=== PATIENT | female | born 1980 | race African-American/Black ===

== ENCOUNTER 2019-03-13 06:10 | Inpatient (IN) | payer OTHER ==
[2019-03-11 14:00] LABS: ABS Eosinophils 0.1 10^3/ul (0-0.6); ABS Lymphocytes 1.3 10^3/ul (1.0-4.8); ABS Monocytes 0.8 10^3/ul (0-0.8); ABS Neutrophils 9.6 10^3/ul (1.5-7.7); Eosinophil % 0.9 %; Hematocrit 36 % (35-47); Hemoglobin 12.2 g/dL (12.0-16.0); Lymphocyte % 10.8 %; Mean Corpuscular HGB Conc 34 g/dL (31-36); Mean Corpuscular Hemoglobin 33 pg (27-31); Mean Corpuscular Volume 97 fL (80-97); Mean Platelet Volume 7.4 fL (7.4-10.4); Nucleated Red Blood Cells % 0.1; Platelet Count 233 10^3/uL (150-450); Red Blood Count 3.68 10^6 /uL (3.70-4.87); Red Cell Distribution Width 14 % (10-15); White Blood Count 11.7 10^3/uL (3.5-10.8)
[~2019-03-13 06:10] MED LIST: Sodium Citrate/Citric Acid* 15 ML UDC PO SCH
--- OUTSIDE RECORDS SUMMARY | 2019-03-13 06:14 | XMS REPORT | Continuity of Care Document ---
:1980 External Reference #:[id number] Author Name Monik Garrett MD Address [address] [place] [address] Care Team Providers Name Role Phone Yara Evangelista MD Care Team Information Brick Picker [phone] Problems Description No Active Problems Social History Type Date Description Comments Sex Unknown Tobacco Use Start: Unknown Never Smoked Cigarettes ETOH Use Alcohol Use Prior To 1 drink/week, stopped with Recreational Drug Use Does Not Use Drugs Tobacco Use Start: Unknown Patient has never smoked Smoking Status Reviewed: 03/05/19 Patient has never smoked Exercise Type/Frequency Does not exercise Seat Belt/Car Seat Always uses seat belt Allergies, Adverse Reactions, Alerts Description No Known Drug Allergies Medications Active Medications SIG Qnty Indications Ordering Provider Date Ferrous Gluconate by mouth twice 60tabs Sammie Burciaga CNM 08/29/2018 a day 324(38Fe) mg Tablets Vitamins 1 by mouth Unknown every day Tablets Eql Fiber Supplement prn Unknown Powder Medications Administered in Office Medication SIG Qnty Indications Ordering Provider Date PT SCRN Tbco Id as Non User Monik Garrett MD 03/05/2019 Injection Immunizations CPT Code Status Date Vaccine Lot # [id number] Given 01/14/2015 Tetnus, Diptheria Toxoids And Acellular Pertussis, [id number] PT > 7Yrs Old Vital Signs Date Vital Result Comment 03/05/2019 2:36pm BP Systolic 110 mmHg BP Diastolic 54 mmHg Height 63.5 inches 5'3.50" Weight 167.00 lb BMI (Body Mass Index) 29.1 kg/m2 4 Parity 3 08/26/2018 2:00pm BP Systolic 114 mmHg BP Diastolic 66 mmHg Height 63.5 inches 5'3.50" Weight 142.00 lb BMI (Body Mass Index) 24.8 kg/m2 Last Menstrual Period [id number] 4 Parity 3 Results Test Date Facility Test Result H/L Range Note Laboratory test [facility] Genital For GRP SEE RESULT 1 [address] [place] [address] B Strep Only BELOW [phone] Glucose [facility] GTT 3HR (SEE NOTE) 2 Tolerance 3HR 9 [place] [address] Gestational Gestational [phone] Laboratory test [facility] Glucose 1 HR 146 mg/dL Normal 70-160 3 finding [address] [place] [address] Post Prandial [phone] CBC With No Diff [facility] White Blood 13.6 High 3.5-10.8 9 [place] [address] Count 10^3/uL [phone] Red Blood Count 3.64 10^6/uL Low 3.70-4.87 Hemoglobin 12.3 g/dL Normal 12.0-16.0 Hematocrit 36 % Normal 35-47 Mean Corpuscular Volume 99 fL High 80-97 Mean Corpuscular Hemoglobin 34 pg High 27-31 Mean Corpuscular HGB Conc 34 g/dL Normal 31-36 Red Cell Distribution Width 16 % High 10-15 Platelet Count 193 10^3/uL Normal 150-450 Mean Platelet Volume 7.8 fL Normal 7.4-10.4 Urine Drug 09/27/2018 [facility] Urine Amphetamine Negative ng/ mL 4 Comp [address] [place] [address] [phone] Urine Barbiturates Negative ng/mL 5 Urine Benzodiazepines Negative ng/mL 6 Urine Cocaine Negative ng/mL 7 Urine Phencyclidine Negative ng/mL Cutoff: 25 Urine Tetrahydrocannabinol Negative ng/mL Cutoff: 50 8 Creatinine, Urine 43.6 mg/dL Specific [place] 1.005 pH 7.6 Oxidants Negative 9 Adulterants Comment Normal Codeine, Ur Not Detected ng/mL Cutoff: 25 10 Lwgzwrx-5-jpdy-glucuronide, Ur Not Detected ng/mL 11 Morphine, Ur Not Detected ng/mL Cutoff: 25 12 Lyteafnl-1-uhqm-glucuronide, U Not Detected ng/mL 13 6-monoacetylmorphine, Ur Not Detected ng/mL Cutoff: 25 14 Hydrocodone, Ur Not Detected ng/mL Cutoff: 25 15 Norhydrocodone, Ur Not Detected ng/mL Cutoff: 25 16 Dihydrocodeine, Ur Not Detected ng/mL Cutoff: 25 17 Hydromorphone, Ur Not Detected ng/mL Cutoff: 25 18 Nefgmfvdqxufb2ajtamjhdfqojbpx Not Detected ng/mL 19 Oxycodone, Ur Not Detected ng/mL Cutoff: 25 20 Noroxycodone, Ur Not Detected ng/mL Cutoff: 25 21 Oxymorphone, Ur Not Detected ng/mL Cutoff: 25 22 Vjnwxpqvlcp-7-gitd-glucuronide Not Detected ng/mL 23 Noroxymorphone, Ur Not Detected ng/mL Cutoff: 25 24 Fentanyl, Ur Not Detected ng/mL Cutoff: 2 25 Norfentanyl, Ur Not Detected ng/mL Cutoff: 2 26 Meperidine, Ur Not Detected ng/mL Cutoff: 25 27 Normeperidine, Ur Not Detected ng/mL Cutoff: 25 28 Naloxone, Ur Not Detected ng/mL Cutoff: 25 29 Nfptjdvf-1-vzhr-glucuronide, U Not Detected ng/mL 30 Methadone, Ur Not Detected ng/mL Cutoff: 25 31 Eddp, Ur Not Detected ng/mL Cutoff: 25 32 Propoxyphene, Ur Not Detected ng/mL Cutoff: 25 33 Norpropoxyphene, Ur Not Detected ng/mL Cutoff: 25 34 Tramadol, Ur Not Detected ng/mL Cutoff: 25 35 O-desmethyltramadol, Ur Not Detected ng/mL Cutoff: 25 36 Tapentadol, Ur Not Detected ng/mL Cutoff: 25 37 N-desmethyltapentadol, Ur Not Detected ng/mL Cutoff: 50 38 Kejrgydwlm-ugro-qfervbtmpye, U Not Detected ng/mL 39 Buprenorphine, Ur Not Detected ng/mL Cutoff: 5 40 Norbuprenorphine, Ur Not Detected ng/mL Cutoff: 5 41 Norbuprenorphine glucuronide Not Detected ng/mL Cutoff: 20 42 Opioid Interpretation See Comment 43 GC/Chlamydia Dna 09/27/2018 [facility] Chlamydia [place] [address] trachomatis Rna [phone] Neisseria gonorrhoeae (GC) Rna Negative Negative 1 SEE RESULT BELOW Name: YADIEL SHANNON : [address]: Feliberto Maria DO Acct: [id number] Unit: [id number] AGE: 38 Location: [facility] Re02/18/19 SEX: F Status: REG REF SPEC: [id number] FIDENCIO: 02/18/19-[address]: Feliberto Maria DO REQ: [id number] RECD: 02/19/19-1236 STATUS: JASON BOUCHER DR: Yara Evangelista MD _ SOURCE: CER/VAG/RE SPDESC: ORDERED: Grp B Strp Scrn COMMENTS: [id number] Copy Result to: Yara EVANGELISTA ([phone]) QUERIES: Is patient penicillin allergic and/or sensitivities needed? Y Provider Requisition # C77#[id number]_ Procedure Result Reported Site Group B Strep Culture Screen Final 02/21/19- 1009 [facility] Group B Strep Screen Negative * [facility] - Main Lab . END OF REPORT DEPARTMENT OF PATHOLOGY, [address] [place] [address] Camacho Manzano M.D. Director [facility] # [id number] GLU Fast 86 Col: 12/30/18 0759 GLU 1HR 117 Col: 12/30/18 0859 GLU 2HR 118 Col: 12/30/18 0959 GLU 3HR 95 Col: 12/30/18 1059 GLU Interp Col: 12/30/18 0759 GTT normal ranges for obstetrics per the [employer] (ACOG).Based on 100 gm glucose load: Fasting <95 mg/dl 1hr <180 mg/dl 2hr <155 mg/dl 3hr <140 mg/dl 3 [id number] REFERENCE VALUE Cutoff: 500 5 REFERENCE VALUE Cutoff: 200 6 REFERENCE VALUE Cutoff: 100 7 REFERENCE VALUE Cutoff: 150 8 ADDITIONAL INFORMATION This report is intended for use in clinical monitoring or management of patients. It is not intended for use in employment-related testing. 9 REFERENCE VALUE Cutoff: 200 mg/L 10 Tylenol 3 11 Metabolite of codeine REFERENCE VALUE Cutoff: 100 12 Joanna Padgett, MS Contin; Also a minor metabolite (10%) of codeine and can be seen in low concentrations (<2,000 ng/mL) with poppy seed ingestion. 13 Metabolite of morphine REFERENCE VALUE Cutoff: 100 14 Metabolite of heroin 15 Lortab, [place], Vicodin; Also a very minor metabolite of codeine and impurity (<1%) of oxycodone. 16 Metabolite of hydrocodone 17 Metabolite of hydrocodone 18 Dilaudid, Exalgo; Also a metabolite of hydrocodone and a minor (<5%) metabolite of morphine. 19 Metabolite of hydromorphone REFERENCE VALUE Cutoff: 100 20 Endocet, Percocet, Oxycontin 21 Metabolite of oxycodone 22 Numorphan, Opana; Also a metabolite of oxycodone. 23 Metabolite of oxymorphone REFERENCE VALUE Cutoff: 100 24 Metabolite of oxymorphone 25 Actiq, Duragesic, Fentora 26 Metabolite of fentanyl 27 Demerol 28 Metabolite of meperidine 29 Narcan 30 Metabolite of naloxone REFERENCE VALUE Cutoff: 100 31 Dolophine 32 Metabolite of methadone 33 Darvon, Darvocet 34 Metabolite of propoxyphene 35 Tradol, Ultram, Ultracet 36 Metabolite of tramadol 37 Nucynta 38 Metabolite of tapentadol 39 Metabolite of tapentadol REFERENCE VALUE Cutoff: 100 40 Buprenex, Suboxone 41 Metabolite of buprenorphine 42 Metabolite of buprenorphine 43 No opioids were detected. The absence of expected drug(s) and/or drug metabolite(s) may indicate non-compliance, altered pharmacokinetics, inappropriate timing of specimen collection relative to drug administration, diluted/adulterated urine, or limitations of testing. ADDITIONAL INFORMATION This test was developed and its performance characteristics determined by [facility] in a manner consistent with CLIA requirements. This test has not been cleared or approved by the U.S. Food and Drug Administration. Test Performed by: [facility] [address] [place] [id number] Procedures Date Code Description Status 11/08/2018 56665 Echography Uterus Complete Completed Medical Devices Description No Information Available Encounters Type Date Location Provider Dx Diagnosis Office Visit 03/05/2019 [facility] Monik Garrett, O34.211 Matern care for low 2:30p MD transverse scar from prev del Assessments Date Code Description Provider 03/05/2019 O34.211 Maternal care for low transverse scar from Monik Garrett MD previous delivery 02/18/2019 O34.211 Maternal care for low transverse scar from Feliberto Maria JR, DO previous delivery 02/10/2019 O34.211 Maternal care for low transverse scar from Felibertoashley Maria JR, DO previous delivery 02/03/2019 Z34.83 Encounter for supervision of other normal Monik Garrett MD , third trimester 01/17/2019 Z34.83 Encounter for suprvsn of normal , Maik Grimes M.D. third trimester 01/01/2019 O34.211 Matern care for low transverse scar from Jo Rowland MD prev del 12/30/2018 Z36.9 Encounter for screening, Monik Garrett MD unspecified 12/30/2018 Z36.9 Encounter for screening, Laboratory unspecified 12/09/2018 Z36.9 Encounter for screening, Jo Rowland MD unspecified 12/09/2018 Z36.9 Encounter for screening, Laboratory unspecified 12/09/2018 O34.211 Matern care for low transverse scar from Jo Rowland MD prev del 11/08/2018 Z36.3 Encounter for screening for Rosalva Ocasio MD malformations 11/08/2018 O34.211 Matern care for low transverse scar from Rosalva Ocasio MD prev del 11/08/2018 Z36.3 Encounter for screening for Ultrasounds malformations 10/28/2018 O34.211 Matern care for low transverse scar from Rosalva Ocasio MD prev del 09/27/2018 O34.211 Matern care for low transverse scar from Jo Rowland MD prev del Plan of Treatment Future Appointment(s):03/20/2019 11:00 am - Lucia Castillo CNM at [facility] 7:45 am - Maik Grimes M.D. at [facility] O R1 10:00 am - Monik Garrett MD at [facility]03/13/2019 7:45 am - Monik Garrett MD at [facility] O R003/05/2019 - Monik Garrett MDO34.211 Maternal care for low transverse scar from previous deliveryComments:Pt desires permanent sterility and repeat section. Pt accepts risks to include but not limited to infection, bleeding, damage to internal organs, failure of tubal ligation 2% over 10 years, need for blood products, need for hysterectomy. Consent form reviewed personally with patient and signed together. Functional Status Description No Information Available Mental Status Description No Information Available Referrals Description No Information Available
[2019-03-13] MEDS ORDERED: ceFOXitin 2 GM IVPREMIX* 2 GM/50 ML BAG IVPB ONE (07:00)
[2019-03-13] MEDS ORDERED: Morphine PF AMP (0.5MG/ML)* 5 MG/10 ML AMP ONE (07:52)
[2019-03-13] MEDS ORDERED: OXYTOCIN* 10 UNITS/ML 1 ML VIAL ONE (08:21)
[2019-03-13] MEDS ORDERED: EPHEDrine (Pressors)* 50 MG/ML VIAL ONE (08:21)
[2019-03-13] MEDS ORDERED: Naloxone* 0.4 MG/ML 1 ML VIAL IV PRN (08:47)
[2019-03-13] MEDS ORDERED: Nalbuphine* 10 MG/ML 1 ML VIAL IV PRN (08:47)
[2019-03-13] MEDS ORDERED: Ondansetron INJ* 2 MG/ML VIAL IV PRN (08:47)
[2019-03-13] MEDS ORDERED: HYDROcodone/ACETAMIN 5-325 MG* 1 TAB PO PRN (08:47)
[2019-03-13] MEDS ORDERED: Ondansetron INJ* 2 MG/ML VIAL ONE (08:54)
[2019-03-13] MEDS ORDERED: Ibuprofen TAB* 600 MG PO PRN (09:21)
[2019-03-13] MEDS ORDERED: Witch Hazel PAD* JAR TOPICAL PRN (09:21)
[2019-03-13] MEDS ORDERED: Acetaminophen TAB* 325 MG PO PRN (09:21)
[2019-03-13] MEDS ORDERED: Glycerin ADULT SUPP PR PRN (09:21)
[2019-03-13] MEDS ORDERED: Dibucaine 1% 28.35 GM TUBE PR PRN (09:21)
[2019-03-13] MEDS ORDERED: Lactated Ringers 1000 ML Bag* 1,000 ML IV SCH (10:00)
[2019-03-13] MEDS ORDERED: Oxytocin in LR* 20 UNITS/1,000 ML BAG IVPB SCH (10:00)
[2019-03-13] MEDS ORDERED: Influenza VAC *QUAD* 2019-20* 0.5 ML SYRINGE IM ONE (11:00)
[2019-03-13] MEDS: Ketorolac INJ* 30 MG/ML 1 ML VIAL IV PRN ×3 (11:09→23:49)
[2019-03-13] MEDS: Simethicone TAB* 80 MG TAB.CHEW PO SCH ×3 (13:55→20:02)
[2019-03-13] MEDS: Docusate CAP* 100 MG PO SCH ×2 (13:56→20:02)
[2019-03-13] MEDS ORDERED: Promethazine INJ(RESTRICTED)* 25 MG/ML 1 ML VIAL IV ONE (14:00)
[2019-03-14] MEDS ORDERED: oxyCODONE/Acetamin 5/325 MG* TAB PO PRN ×2 (00:47)
--- NOTE | 2019-03-14 02:56 | OP ---
DATE OF OPERATION: 03/13/19 - ROOM #101 DATE OF : [birth year] SURGEON: Monik Garrett MD WINCHMAN/CRANE OPERATOR: Maik Grimes MD ANESTHESIOLOGIST: Dr. Tan. ANESTHESIA: Spinal. PRE-OP DIAGNOSES: Intrauterine 39 weeks, desires repeat , and desires permanent sterility. POST-OP DIAGNOSES: Intrauterine 39 weeks, desires repeat C- section, and desires permanent sterility, delivered. OPERATIVE PROCEDURE: Repeat low transverse section and bilateral tubal ligation with fimbriectomy. ESTIMATED BLOOD LOSS: 600 cc. URINE OUTPUT: 250 cc of clear yellow urine. IV FLUIDS: 2600 cc of crystalloid. FINDINGS: Revealed a vertex female. Apgars were 8 at 1 minute, 9 at 5 minutes. Light meconium. No nuchal cord. 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 Normal-appearing fallopian tubes and ovaries. Normal appearing uterus. Normal uterine cavity without evidence of retained membranes or placental tissue. Normal appearing placenta, 3-vessel cord, manually extracted and intact. COMPLICATIONS: None apparent. DISPOSITION: Stable to recovery room. DESCRIPTION OF PROCEDURE: The patient was placed in dorsal lithotomy position. The abdomen was prepped and draped in a sterile standard fashion. Traxi drape was used to retract the skin which was placed underneath the drapes. The patient was then identified with universal protocol for correct procedure, position, and patient. Anesthesia was tested to appropriate level and a skin incision was made to prior skin incision. This was carried down through the fascia. Fascia was scored in the midline, extended laterally and superiorly using Muhammad scissors. The peritoneum was then entered sharply with a scalpel and the incision was extended superiorly and inferiorly while directly visualizing bowel and bladder with blunt dissection. There were no adhesions appreciated. A bladder blade was inserted. The lower uterine segment was identified, tented up on an Allis. An incision was made, carried down through to the membranes. The incision was extended laterally and superiorly using bandage scissors. Amniotomy created, which revealed thin meconium. The infant was delivered vertex. No nuchal cord was appreciated. Cord was milked and cord was then doubly clamped and cut and then was handed off to waiting wire products inspector. Appropriate cord blood was then obtained. Placenta was then manually extracted, noted to be intact and 3-vessel. The uterus was exteriorized , wrapped in warm moist laparotomy sponge. The uterine cavity was explored, noted to be free of membranes or placental tissue. The hysterotomy site was then reapproximated using 2 layers of 0 Vicryl, first layer running locked, second layer running imbricated. At that point, attention was then focused on permanent sterility with bilateral tubal ligation, which the patient concurred to do on multiple occasions. A Morovis was first placed on the right fallopian tube. A Alexia was placed across the mesosalpinx and the distal end of the tube. A free tie ligature suture was applied using 2-0 Vicryl and then a second Flower suture was applied. The portion of the tube was then sharply excised using Metzenbaum scissors with the distal third of the tube with fimbria included. Hemostasis was noted. This process was then repeated on the left in the same exact fashion. Hemostasis was noted. Uterus was returned intraabdominally. Colic gutters were lavaged. Hemostasis was assured at the tubal ligation site. Hysterotomy site was noted to be hemostatic also. The peritoneum was then reapproximated using 3-0 Vicryl in a running fashion. Subfascial area was visualized. Hemostasis assured and the fascia itself was reapproximated using 0 Vicryl x2 in a running fashion. The subcu was then reapproximated using 4-0 Monocryl in a subcuticular fashion. Mastisol and Steris were then applied. The patient tolerated the procedure well and went to recovery room in stable condition. The baby was 9 pounds 8 ounces. She is big girl and Apgars were 8 at 1 minute and 9 at 5 minutes. [id number]/[facility] #: [id number] [facility]ITALKiesha
[2019-03-14] MEDS: Ketorolac INJ* 30 MG/ML 1 ML VIAL IV PRN (05:33)
[2019-03-14 05:48] LABS: ABS Eosinophils 0.1 10^3/ul (0-0.6); ABS Lymphocytes 1.2 10^3/ul (1.0-4.8); ABS Monocytes 1.1 10^3/ul (0-0.8); Eosinophil % 0.7 %; Hematocrit 36 % (35-47); Hemoglobin 12.1 g/dL (12.0-16.0); Lymphocyte % 7.5 %; Mean Corpuscular HGB Conc 34 g/dL (31-36); Mean Corpuscular Hemoglobin 33 pg (27-31); Mean Corpuscular Volume 98 fL (80-97); Mean Platelet Volume 7.2 fL (7.4-10.4); Platelet Count 216 10^3/uL (150-450); Red Blood Count 3.64 10^6 /uL (3.70-4.87); Red Cell Distribution Width 14 % (10-15); White Blood Count 16.4 10^3/uL (3.5-10.8)
[2019-03-14] MEDS: Simethicone TAB* 80 MG TAB.CHEW PO SCH ×4 (08:14→21:51)
[2019-03-14] MEDS: Docusate CAP* 100 MG PO SCH ×3 (08:14→21:41)
[2019-03-14] MEDS ORDERED: Ferrous Gluconate TAB* 324 MG TAB PO SCH (09:00)
[2019-03-14] MEDS: Ibuprofen TAB* 600 MG PO PRN (14:01)
[2019-03-15] MEDS: Ibuprofen TAB* 600 MG PO PRN ×2 (04:33→11:48)
[2019-03-15 07:59] VITALS: BP 98/59
[2019-03-15] MEDS: Docusate CAP* 100 MG PO SCH (09:04)
[2019-03-15] MEDS: Simethicone TAB* 80 MG TAB.CHEW PO SCH ×2 (09:04→11:48)
== END 2019-03-15 13:20 | disposition home or self-care (01) | DRG 540 ==
LOC: MCHOB 06:10
PROVIDERS: ADMIT Obstetrics & Gynecology; ATTEND Obstetrics & Gynecology
PROC: 4A1HXCZ Monitoring of Products of Conception, Cardiac Rate, External Approach (ICD-10-PCS; 2019-03-13)
PROC: 0UB70ZZ Excision of Bilateral Fallopian Tubes, Open Approach (ICD-10-PCS; 2019-03-13)
PROC: 10D00Z1 Extraction of Products of Conception, Low, Open Approach (ICD-10-PCS; principal; 2019-03-13 07:45)
DX: O34.211 Maternal care for low transverse scar from previous cesarean delivery (principal); O77.0 Labor and delivery complicated by meconium in amniotic fluid; Z3A.39 39 weeks gestation of pregnancy; Z37.0 Single live birth; Z30.2 Encounter for sterilization
CPT/HCPCS: 36415; 85025; 86850; 86900; 86901; 88302; 90686; A9270-GY; J0694; J1885; J2405; J2550; J2590

== ENCOUNTER 2019-04-06 11:18 | Emergency (ER) | payer OTHER ==
--- OUTSIDE RECORDS SUMMARY | 2019-04-06 11:39 | XMS REPORT | Continuity of Care Document ---
:1980 External Reference #:[id number] Author Name Lucia Castillo CNM Address [address] [place] [address] Care Team Providers Name Role Phone Yara Santos MD Care Team Information [employer] [phone] Problems Description No Active Problems Social History [...] CPT Code Status Date Vaccine Lot # [id number] Given 01/14/2015 Tetnus, Diptheria Toxoids And Acellular Pertussis, [id number] PT > 7Yrs Old Vital Signs Date Vital Result Comment 03/20/2019 10:48am BP Systolic 116 mmHg BP Diastolic 76 mmHg Body Temperature 98.0 F Height 63.5 inches 5'3.50" Weight 161.00 lb BMI (Body Mass Index) 28.1 kg/m2 4 Parity 4 03/05/2019 2:36pm BP Systolic 110 mmHg BP Diastolic 54 mmHg Height 63.5 inches 5'3.50" Weight 167.00 lb BMI (Body Mass Index) 29.1 kg/m2 4 Parity 3 Results Test Date Facility Test Result H/L Range Note Laboratory test [facility] Surgical SEE RESULT 1 finding [address] [place] [address] Pathology BELOW [phone] Laboratory test [facility] Genital For GRP SEE RESULT 2 [address] [place] [address] B Strep Only BELOW [phone] Glucose [facility] GTT 3HR (SEE NOTE) 3 Tolerance 3HR [address] [place] [address] Gestational Gestational [phone] Laboratory test [facility] Glucose 1 HR 146 mg/dL Normal 70-160 4 finding [address] [place] [address] Post Prandial [phone] CBC With No Diff [facility] White Blood 13.6 High 3.5-10.8 [address] [place] [address] Count 10^3/uL [phone] Red Blood Count 3.64 10^6/uL Low 3.70-4.87 Hemoglobin 12.3 g/dL Normal 12.0-16.0 Hematocrit 36 % Normal 35-47 Mean Corpuscular Volume 99 fL High 80-97 Mean Corpuscular Hemoglobin 34 pg High 27-31 Mean Corpuscular HGB Conc 34 g/dL Normal 31-36 Red Cell Distribution Width 16 % High 10-15 Platelet Count 193 10^3/uL Normal 150-450 Mean Platelet Volume 7.8 fL Normal 7.4-10.4 Urine Drug 09/27/2018 [facility] Urine Amphetamine Negative ng/ mL 5 Comp [address] [place] [address] [phone] Urine Barbiturates Negative ng/mL 6 Urine Benzodiazepines Negative ng/mL 7 Urine Cocaine Negative ng/mL 8 Urine Phencyclidine Negative ng/mL Cutoff: 25 Urine Tetrahydrocannabinol Negative ng/mL Cutoff: 50 9 Creatinine, Urine 43.6 mg/dL Specific [place] 1.005 pH 7.6 Oxidants Negative 10 Adulterants Comment Normal Codeine, Ur Not Detected ng/mL Cutoff: 25 11 Iggkskh-3-nnvd-glucuronide, Ur Not Detected ng/mL 12 Morphine, Ur Not Detected ng/mL Cutoff: 25 13 Ntfprlig-0-qxcw-glucuronide, U Not Detected ng/mL 14 6-monoacetylmorphine, Ur Not Detected ng/mL Cutoff: 25 15 Hydrocodone, Ur Not Detected ng/mL Cutoff: 25 16 Norhydrocodone, Ur Not Detected ng/mL Cutoff: 25 17 Dihydrocodeine, Ur Not Detected ng/mL Cutoff: 25 18 Hydromorphone, Ur Not Detected ng/mL Cutoff: 25 19 Jpcvdxkjhnhcm0wuemvsqqcjhslwb Not Detected ng/mL 20 Oxycodone, Ur Not Detected ng/mL Cutoff: 25 21 Noroxycodone, Ur Not Detected ng/mL Cutoff: 25 22 Oxymorphone, Ur Not Detected ng/mL Cutoff: 25 23 Gegdzdoapxb-6-dxtl-glucuronide Not Detected ng/mL 24 Noroxymorphone, Ur Not Detected ng/mL Cutoff: 25 25 Fentanyl, Ur Not Detected ng/mL Cutoff: 2 26 Norfentanyl, Ur Not Detected ng/mL Cutoff: 2 27 Meperidine, Ur Not Detected ng/mL Cutoff: 25 28 Normeperidine, Ur Not Detected ng/mL Cutoff: 25 29 Naloxone, Ur Not Detected ng/mL Cutoff: 25 30 Glxwolnc-4-whja-glucuronide, U Not Detected ng/mL 31 Methadone, Ur Not Detected ng/mL Cutoff: 25 32 Eddp, Ur Not Detected ng/mL Cutoff: 25 33 Propoxyphene, Ur Not Detected ng/mL Cutoff: 25 34 Norpropoxyphene, Ur Not Detected ng/mL Cutoff: 25 35 Tramadol, Ur Not Detected ng/mL Cutoff: 25 36 O-desmethyltramadol, Ur Not Detected ng/mL Cutoff: 25 37 Tapentadol, Ur Not Detected ng/mL Cutoff: 25 38 N-desmethyltapentadol, Ur Not Detected ng/mL Cutoff: 50 39 Rjjbxdkpvp-hetf-ivlvyycknrp, U Not Detected ng/mL 40 Buprenorphine, Ur Not Detected ng/mL Cutoff: 5 41 Norbuprenorphine, Ur Not Detected ng/mL Cutoff: 5 42 Norbuprenorphine glucuronide Not Detected ng/mL Cutoff: 20 43 Opioid Interpretation See Comment 44 GC/Chlamydia Dna 09/27/2018 [facility] Chlamydia [place] [address] trachomatis Rna [phone] Neisseria gonorrhoeae (GC) Rna Negative Negative 1 SEE RESULT BELOW Name: YADIEL SHANNON : [address]: Monik Garrett MD Acct: [id number] Unit: [id number] AGE: 38 Location: [place] [address] Re03/13/19 Dis: 03/15/19 SEX: F Status: DIS IN SPEC: [id number] FIDENCIO: 03/13/[address]: Monik Garrett MD REQ: [id number] RECD: 03/13/19 STATUS: SOUT _ ORDERED: LEVEL 2 FINAL DIAGNOSIS Fallopian tubes, bilateral, ligation: -- Completely transected benign fimbriated fallopian tubes with no significant pathologic abnormalities. CLINICAL HISTORY 4/para 3 PRE-OPERATIVE DIAGNOSIS Term intrauterine with repeat caesarean with bilateral tube ligation GROSS DESCRIPTION The specimen is received fresh labeled, Right and Left Fallopian Tubes, and consists of two fimbriated fallopian tubes averaging 3.5 by up to 0.7 cm. The serosa is smooth to wrinkled purple bennett with rare focal paratubal cysts measuring up to 0.5 cm. The cut surface is unremarkable. The specimen is differentially inked and registration representative sections are submitted in one cassette. Signed by and Reported on: Brooklyn Sharif MD 03/18/19 1559 END OF REPORT DEPARTMENT OF PATHOLOGY, [address] [place] [address] Camacho Manzano M.D. Director [facility] # [id number] 2 SEE RESULT BELOW Name: SHIVAJOHNSONSANTO : [address]: Feliberto Maria DO Acct: [id number] Unit: [id number] AGE: 38 Location: [facility] Re02/18/19 SEX: F Status: REG REF SPEC: [id number] FIDENCIO: 02/18/19-[address]: Feliberto Maria DO REQ: [id number] RECD: 02/19/19-1236 STATUS: COMP OTHR DR: Yara Santos MD _ SOURCE: CER/VAG/RE SPDESC: ORDERED: Grp B Strp Scrn COMMENTS: [id number] Copy Result to: Yara SANTOS ([id number]) QUERIES: Is patient penicillin allergic and/or sensitivities needed? Y Provider Requisition # C77#[id number] Procedure Result Reported Site Group B Strep Culture Screen Final 02/21/19- 1009 ML Group B Strep Screen Negative * ML - Main Lab . END OF REPORT DEPARTMENT OF PATHOLOGY, [address] [place] [address] Camacho Manzano M.D. Director [facility] # [id number] 3 GLU Fast 86 Col: 12/30/18 0759 GLU 1HR 117 Col: 12/30/18 0859 GLU 2HR 118 Col: 12/30/18 0959 GLU 3HR 95 Col: 12/30/18 1059 GLU Interp Col: 12/30/18 0759 GTT normal ranges for obstetrics per the [employer] (ACOG).Based on 100 gm glucose load: Fasting <95 mg/dl 1hr <180 mg/dl 2hr <155 mg/dl 3hr <140 mg/dl 4 [id number] 5 REFERENCE VALUE Cutoff: 500 6 REFERENCE VALUE Cutoff: 200 7 REFERENCE VALUE Cutoff: 100 8 REFERENCE VALUE Cutoff: 150 9 ADDITIONAL INFORMATION This report is intended for use in clinical monitoring or management of patients. It is not intended for use in employment-related testing. 10 REFERENCE VALUE Cutoff: 200 mg/L 11 Tylenol 3 12 Metabolite of codeine REFERENCE VALUE Cutoff: 100 13 Joanna Padgett, Contin; Also a minor metabolite (10%) of codeine and can be seen in low concentrations (<2,000 ng/mL) with poppy seed ingestion. 14 Metabolite of morphine REFERENCE VALUE Cutoff: 100 15 Metabolite of heroin 16 Lortab, Lawrence, Vicodin; Also a very minor metabolite of codeine and impurity (<1%) of oxycodone. 17 Metabolite of hydrocodone 18 Metabolite of hydrocodone 19 Dilaudid, Exalgo; Also a metabolite of hydrocodone and a minor (<5%) metabolite of morphine. 20 Metabolite of hydromorphone REFERENCE VALUE Cutoff: 100 21 Endocet, Percocet, Oxycontin 22 Metabolite of oxycodone 23 Numorphan, Opana; Also a metabolite of oxycodone. 24 Metabolite of oxymorphone REFERENCE VALUE Cutoff: 100 25 Metabolite of oxymorphone 26 Actiq, Duragesic, Fentora 27 Metabolite of fentanyl 28 Demerol 29 Metabolite of meperidine 30 Narcan 31 Metabolite of naloxone REFERENCE VALUE Cutoff: 100 32 Dolophine 33 Metabolite of methadone 34 Darvon, Darvocet 35 Metabolite of propoxyphene 36 Tradol, Ultram, Ultracet 37 Metabolite of tramadol 38 Nucynta 39 Metabolite of tapentadol 40 Metabolite of tapentadol REFERENCE VALUE Cutoff: 100 41 Buprenex, Suboxone 42 Metabolite of buprenorphine 43 Metabolite of buprenorphine 44 No opioids were detected. The absence of expected drug(s) and/or drug metabolite(s) may indicate non-compliance, altered pharmacokinetics, inappropriate timing of specimen collection relative to drug administration, diluted/adulterated urine, or limitations of testing. ADDITIONAL INFORMATION This test was developed and its performance characteristics determined by [facility] in a manner consistent with CLIA requirements. This test has not been cleared or approved by the U.S. Food and Drug Administration. Test Performed by: [facility] [address] [place] [address] Procedures Date Code Description Status 03/13/2019 22451 Delivery Only Completed 03/13/2019 85007 Delivery Routine Completed 11/08/2018 16353 Echography Uterus Complete Completed Medical Devices Description No Information Available Encounters Type Date Location Provider Dx Diagnosis Office Visit 03/05/2019 [facility] Office Monik Garrett, O34.211 Matern care for low 2:30p MD transverse scar from prev del Assessments Date Code Description Provider 03/20/2019 Z09 Encounter for follow-up examination after Lucia Castillo CNM completed treatment for conditions other than malignant neoplasm 03/13/2019 O34.211 Maternal care for low transverse scar from Maik Grimes M.D. previous delivery 03/13/2019 O34.211 Maternal care for low transverse scar from Monik Garrett MD previous delivery 03/13/2019 Z37.0 Single live Maik Grimes M.D. 03/13/2019 Z37.0 Single live Monik Garrett MD 03/13/2019 Z39.0 Encounter for care and examination of Maik Grimes M.D. mother immediately after delivery 03/13/2019 Z39.0 Encounter for care and examination of Monik Garrett MD mother immediately after delivery 03/05/2019 O34.211 Maternal care for low transverse scar from Monik Garrett MD previous delivery 02/26/2019 Z36.9 Encounter for screening, Maik Grimes M.D. unspecified 02/18/2019 O34.211 Maternal care for low transverse scar from Feliberto Maria JR, DO previous delivery 02/10/2019 O34.211 Maternal care for low transverse scar from Feliberto Maria JR, DO previous delivery 02/03/2019 Z34.83 [...] MD prev del Plan of Treatment Future Appointment(s):04/14/2019 10:00 am - Monik Garrett MD at [facility] Functional Status Description No Information Available Mental Status Description No Information Available Referrals Description No Information Available
[2019-04-06 11:46] VITALS: BP 111/64
--- NOTE | 2019-04-06 12:40 | UC ---
Nausea/Vomiting/Diarrhea HPI - HPI Summary HPI Summary: 38 year old female, 3 weeks post- who present with complaint of vomiting that started early this morning. Denies other sx, has vomited about 9 times. Has not attempted to hold down any fluids prior to arriving. Pt is lactose intolerant and states she may have had too much dairy last night. Denies abdominal pain, fever nor diarrhea. Currently is breast feeding. - History of Current Complaint Chief Complaint: UCGI Stated Complaint: VOMITING Time Seen by Provider: 04/06/19 12:03 Hx Obtained From: Patient Hx Last Menstrual Period: 06/2014 Onset/Duration: Sudden Onset, Lasting Hours - 6 hours Pain Intensity: 0 Aggravating Factor(s): Nothing Alleviating Factor(s): Nothing Nausea/Vomiting Presence: Vomiting - 9 episodes over the past 6 hours. Diarrhea Presence: No - Allergies/Home Medications Allergies/Adverse Reactions: Allergies Allergy/AdvReac Type Severity Reaction Status Date / Time No Known Allergies Allergy Verified 04/06/19 11:46 PMH/Surg Hx/FS Hx/Imm Hx Previously Healthy: Yes - Surgical History Surgical History: Yes Surgery Procedure, Year, and Place: C-Sections, 2014 2012,2018 [facility]; Left Wrist Ganglion, 2010, [place]; Partial Thyroidectomy, 2009, [place]; , 2007 , [place] - Family History Known Family History: Positive: Non-Contributory - Social History Alcohol Use: None Substance Use Type: None Smoking Status (MU): Never Smoked Tobacco Have You Smoked in the Last Year: No - Immunization History Most Recent Influenza Vaccination: 03/14/19 Most Recent Tetanus Shot: 01/29/13 Most Recent Pneumonia Vaccination: none Review of Systems All Other Systems Reviewed And Are Negative: Yes Constitutional: Positive: Fatigue. Negative: Fever, Chills Skin: Negative: Rash, Bruising Eyes: Negative: Blurred Vision, Photophobia ENT: Positive: Negative Respiratory: Negative: Shortness Of Breath, Cough Cardiovascular: Negative: Palpitations, Chest Pain Genitourinary: Negative: Dysuria, Hematuria, Frequency, Urgency Motor: Positive: Negative Neurovascular: Positive: Negative Musculoskeletal: Positive: Negative Neurological: Negative: Headache, Weakness Psychological: Positive: Negative Is Patient Immunocompromised?: No Physical Exam Triage Information Reviewed: Yes Appearance: Well-Appearing, No Pain Distress Vital Signs: Initial Vital Signs Temp 98.6 F 04/06/19 11:42 Pulse 91 04/06/19 11:42 Resp 14 04/06/19 11:42 BP 111/64 04/06/19 11:42 Pulse Ox 99 04/06/19 11:42 Vital Signs Reviewed: Yes Eyes: Positive: Conjunctiva Clear ENT: Positive: Normal ENT inspection Neck: Positive: Supple, Nontender, No Lymphadenopathy Respiratory: Positive: Lungs clear, Normal breath sounds Cardiovascular: Positive: RRR, No Murmur Abdomen Description: Positive: Nontender, No Organomegaly, Soft. Negative: CVA Tenderness (R), CVA Tenderness (L), Distended, Guarding, McBurney's Point Tenderness Bowel Sounds: Positive: Present, Hyperactive Musculoskeletal: Positive: Strength Intact, ROM Intact, No Edema Neurological: Positive: Alert, Fatigued - secondary to vomiting Skin: Negative: Rashes Naus/Vom/Diarrhea Course/Dx - Course Course Of Treatment: Patient is currently breast feeding. Milenafran states "caution advised while ; no human data available to assess risk of harm ir effects on milk production." She preferred to give a trial of oral hydration with water while here to asses if she is able to hold down liquids. - Differential Dx/Diagnosis Differential Diagnoses - Female: Gerd, Gastroenteritis (Viral), Other - Lactose Intolareance Provider Diagnosis: Vomiting Condition At Discharge: Fair Discharge ED - Sign-Out/Discharge Documenting (check all that apply): Patient Departure All imaging exams completed and their final reports reviewed: No Studies - Discharge Plan Condition: Fair Disposition: HOME Prescriptions: Ondansetron ODT TAB* [Zofran 4 MG Odt TAB*] 4 mg PO Q6H PRN #6 tab.odt PRN Reason: Vomiting Patient Education Materials: Acute Nausea and Vomiting (ED) Referrals: Katerin Peraza MD [Primary Care Provider] - Additional Instructions: Recommend clear liquids today, advance diet as tolerated. If vomiting recurs, take Zofran as prescribed and pump and discard breast milk for 24 hours after taking last dose of Zofran. Contact video library assistant for temporary infant formula recommendations if you take the Zofran. Follow-up with your Primary Care Physician if vomiting persists or if fever and or abdominal pain develop. - Billing Disposition and Condition Condition: FAIR Disposition: Home
== END 2019-04-06 13:14 | disposition home or self-care (01) ==
LOC: UCCORT 11:18
DX: R11.10 Vomiting, unspecified (principal)
CPT/HCPCS: 99212; G0463